=== PATIENT | male | born 1945 | race Two or more races ===

== ENCOUNTER 2021-06-10 08:00 | Outpatient (CLI) | payer OTHER | END 2021-06-10 08:30 | disposition home or self-care (01) | LOC: PPH VACUNA 08:00 | PROVIDERS: ATTEND Emergency Medicine Pediatric Emergency Medicine | DX: Z23 Encounter for immunization (principal) ==

== ENCOUNTER 2022-01-06 12:46 | Emergency (ER) | payer OTHER ==
[~2022-01-06] VITALS: Ht 182.9 cm; Wt 97.5 kg
[2022-01-06] MEDS ORDERED: AVALIDE 300-121 EACH (14:03)
[2022-01-06] MEDS ORDERED: ZOCOR20 MG (14:04)
[2022-01-06] MEDS ORDERED: JANUMET XR 1001 EACH (14:04)
[2022-01-06] MEDS ORDERED: CARVEDILOL6.25 MG (14:04)
[2022-01-06] MEDS ORDERED: PEPCID AC20 MG (14:05)
[2022-01-06] MEDS ORDERED: LEVO-T88 MCG (14:05)
[2022-01-06] MEDS ORDERED: SPIRIVA RESPIMAT4 G1 (14:05)
== END 2022-01-06 15:34 | disposition home or self-care (01) ==
LOC: ER 12:46
DX: K64.9 Unspecified hemorrhoids (principal); K62.5 Hemorrhage of anus and rectum

== ENCOUNTER 2022-03-24 11:21 | Outpatient (CLI) | payer OTHER ==
[~2022-03-24 11:21] MED LIST: AVALIDE 300-121 EACH; CARVEDILOL6.25 MG; JANUMET XR 1001 EACH; LEVO-T88 MCG; PEPCID AC20 MG; SPIRIVA RESPIMAT4 G1; ZOCOR20 MG
== END 2022-03-24 11:36 | disposition home or self-care (01) ==
LOC: PPH VACUNA 11:21
PROVIDERS: ATTEND Emergency Medicine Pediatric Emergency Medicine
DX: Z23 Encounter for immunization (principal)

== ENCOUNTER 2022-05-23 07:25 | Day surgery (SDC) | payer OTHER ==
[~2022-05-23] VITALS: Ht 182.9 cm; Wt 92.1 kg
[~2022-05-23 07:25] MED LIST changes: +SPIRIVA IH
[2022-05-23] MEDS ORDERED: RECTICARE30 GM TOP (09:22)
[2022-05-23] MEDS ORDERED: PERCOCET 5-3251 EACH PO (09:22)
== END 2022-05-23 14:45 | disposition home or self-care (01) ==
LOC: CIR.AMB 07:25
PROVIDERS: ATTEND Surgery
DX: K64.2 Third degree hemorrhoids (principal); R19.5 Other fecal abnormalities; K59.04 Chronic idiopathic constipation; I10 Essential (primary) hypertension; Z20.822 Contact with and (suspected) exposure to COVID-19; Z03.818 Encounter for observation for suspected exposure to other biological agents ruled out